=== PATIENT | male | born 1965 | race Caucasian/White ===

== ENCOUNTER 2017-03-18 18:27 | Inpatient (IN) | payer BC ==
--- NOTE | ~2017-03-18 | CO ---
Unit #: [id number] #: [id number] Patient: RODGER BUCHANAN [id number] [place] [address] [id number] I MR#: [id number] NAME: RODGER BUCHANAN ROOM: 81 Age: 51 Sex: M Admission Date: 03/18/2017 : 1965 Attending Physician: Ridge Arredondo M.D. Primary Care Physician: Primary Care Physician No Consultation Date: 03/19/2017 CONSULTATION REPORT SUBJECTIVE Rodger is a 51-year-old who complained of "severe" pain in his left side near his ribs sometime after admission. He tells me that he wrestled with a pit bull 10 days prior to admission. We have been asked to assess and give recommendations. OBJECTIVE GENERAL: Alert, well nourished, in no apparent distress. VITAL SIGNS: Blood pressure 130/70, heart rate 80, respirations 16, temperature 98.6. CHEST: Lungs clear. No evidence of bruising, swelling, or redness noted along the posterior, lateral, or anterior chest wall. ASSESSMENT Normal exam. PLAN Tylenol p.r.n. Dictated by... Caroline Cisneros PJodiA.-C. for Christa Up/frederic TD: 03/24/2017 23:09 JOB #: [id number] CONSULTATION REPORT Page 1 of 1 X Caroline Cisneros X CONSULTATION REPORT
--- NOTE | ~2017-03-18 | A ---
[facility] Nutrition Therapy DATE: 03/20/17 Patient: RADHA BUCHANAN Physician: ZBIGNIEW [facility] [address] [address] Room/[address]: [address], Zip: [place] [address] Admit Date: 03/18/17 Date of : [birth year] Height: 5 8 Weight: [phone] NUTRITIONAL ASSESSMENT: REASON: UNINTENTIONAL WEIGHT LOSS PATIENT ADMITTED FOR HEROIN DETOX PMH: DM2, HEP C, HLD Anthropometrics: HT: 5'8", WT: 160#, BMI: 24.3 Labs: 03/19/17: NA: 134, GLU: 334, ALB: 3.2 Meds: MVI, ZESTRIL, DESYREL, DETOX PROTOCOL Assessment: PATIENT IS A 51 Y/O MALE ADMITTED FOR HEROIN DETOX. PATIENT IS CURRENTLY EMPLOYED, LIVES WITH HIS PARENTS, SMOKES 1/2 PPD, HAS DAILY HEROIN AND ETOH USE, AND HAS A HX OF ILLICT SUBSTANCE ABUSE. PATIENT BROKE HIS JAW 3 MONTHS AGO AND STARTED USING HEROIN. HE STATED A GOOD APPETITE WITH NO RECENT WEIGHT CHANGES. NURSING REPORTS FAIR PO INTAKES. THERE ARE NO SKIN OR GI ISSUES NOTED ATT. CURRENT PSYCH MEDS MAY CAUSE APPETITE AND WEIGHT FLUCTUATIONS. PATIENT DOES NOT HAVE A HX OF INPATIENT OR OUTPATIENT TREATMENT. HIS BMI IS WITHIN A HEALTHY RANGE AND HE IS 104% OF HIS IBW. PATIENT IS ON A CC DIET. Dx: ALTERED NUTRIENT NEED R/T DM, CURRENT CONDITION AEB NEED FOR A THERAPEUTIC DIET Intervention: CC DIET, MEDS PER MD, DETOX, PSYCH Monitoring, Evaluation and Goals: 1. ADEQUATE PO INTAKES >50% OF MEALS 2. PREVENT, CORRECT MICRO/MACRO NUTRIENT DEFICIENCIES MONITOR: WEIGHTS, LABS, PO/FLUID INTAKES Recommendations: 1. CONTINUE CC DIET TOLERATED. OFFER SNACKS THROUGHOUT THE DAY 2. ENCOURAGE ADEQUATE PO AND FLUID INTAKES 3. IF PO INTAKES FALL BELOW 50% OF MEALS PLEASE ORDER GLUCERNA BID TO PROMOTE ADEQUATE KCAL AND PROTEIN INTAKES RD TO F/U PER PROTOCOL AND PRN R/T PATIENT MILDLY COMPROMISED [facility] Nutrition Therapy DATE: 03/20/17 Patient: RADHA BUCHANAN Physician: ZBIGNIEW Address: [address] Room/Bed: [address], Zip: [place] [address] Admit Date: 03/18/17 Date of : [birth year] Height: 5 8 Weight: [phone] Respectfully, DOMINIC VZÁQUEZ RD, LD [facility] cc: client file
--- NOTE | ~2017-03-18 | PA ---
Unit #: [id number] #: [id number] Patient: RADHA BUCHANAN [id number] [place] [address] [id number] I MR#: [id number] NAME: RADHA BUCHANAN ROOM: P181 Age: 51 Sex: M Admission Date: 03/18/2017 : 1965 Date of Assessment: 03/19/2017 Attending Physician: Ridge Arredondo M.D. Admitting Physician: Ridge Arredondo M.D. Primary Care Physician: Primary Care Physician No PSYCHIATRIC ASSESSMENT LOCATION [facility], room #181, bed #2. INFORMANT The patient's chart seems reliable. CHIEF COMPLAINT I have been drinking and using heroin. HISTORY OF PRESENT ILLNESS This is a 51-year-old white male with a history of unclear IV heroin and alcohol use. The patient was fairly somnolent and limited in his cooperation during interview process, but he did admit to using alcohol and heroin daily. Most information had to be obtained from chart in terms of details. He did deny any SI or HI, but overall was a poor historian today. The patient apparently per the chart has been using heroin for the last several months, following being given pain pills by his dentist, apparently they more effective so he went immediately to heroin use. It is unclear 0.5 g to 1 g a day as well as 15 or so shots of whiskey a day everyday. It is unclear how long he has been drinking that heavily. The patient apparently has had a subjective history of withdrawal symptoms, but he denied any issues with seizures with me. He denied any acute mood issues, but does report he wants to get "clean." Beyond that, rest of the information will be obtained from the chart. PAST PSYCHIATRIC HISTORY No known issues reported or elicited. No history of inpatient or outpatient care. No history of medications. No history of SI, HI, or any psychosis. FAMILY HISTORY Noncontributory. SOCIAL HISTORY The patient apparently has some college education and is currently living with his parents and is working on a degree for certified [employer]. Conflict issues with his sister who lives there as well. The patient has a history of incarceration. MEDICAL HISTORY Significant for hepatitis C and diabetes. MEDICATION HISTORY Unit #: [id number] #: [id number] Patient: RADHA BUCHANAN Includes Zestril 40 mg daily, Levemir 40 units b.i.d. subcu, Glucophage XR 1000 mg b.i.d. with meals, trazodone 200 mg at bedtime, NovoLog as needed sliding scale. No other medications. ALLERGIES Include codeine and atorvastatin. SUBSTANCE ABUSE HISTORY As noted above, unclear about previous treatments or significant withdrawal symptoms in the past. MENTAL STATUS EXAMINATION General appearance; this is a limitedly groomed white male, appears older than stated age, limited cooperation and response during the interview process. Speech was brief, limited articulation. Mood was somnolent with a blunted affect. Thought process and content were limited in organizational evaluation. No active evidence of SI or HI. Denied psychosis. The patient's memory was limited in its evaluation. He is alert and oriented to time, self, and place, and date, and situation. Cognitive function seems to be stable. Associations are normal. Insight and judgment are poor. ASSETS AND LIABILITIES Assets include support through family, some education. Liabilities include unemployment, history of legal incarceration, ongoing substance abuse. DIAGNOSES 1. Opioid dependency with withdrawal. 2. Alcohol dependency with withdrawal. 3. Diabetes. 4. Hepatitis C. PSYCHIATRIC PLAN Continue the patient's admission for safety and stabilization for ongoing issues of detox from both opioids and alcoholism, and will be placed on appropriate protocols and monitor accordingly. The patient also be maintained on his home medications as noted above as well as be seen by a nurse practitioner for medical evaluation needs. Treatment goal will be resolution of symptoms in a safe controlled environment with discharge planning most likely to be community resources and/or residential treatment if applicable. ESTIMATED LENGTH OF STAY Approximately 5 days. Dictated by... Ridge Arredondo M.D. EZE/frederic TD: 03/19/2017 18:17 JOB #: [id number] Unit #: [id number] #: [id number] Patient: RADHA BUCHANAN PSYCHIATRIC ASSESSMENT Page 1 of 1 X Ridge Arredondo MD X PSYCHIATRIC ASSESSMENT
--- NOTE | ~2017-03-18 | PN ---
Unit #: [id number] #: [id number] Patient: RADHA BUCHANAN [id number] [facility] [address] [place] [address] [id number] I MR#: [id number] NAME: RADHA BUCHANAN ROOM: P181 Age: 51 Sex: M Admission Date: 03/18/2017 : 1965 Attending Physician: Ridge Arredondo M.D. Admitting Physician: Ridge Arredondo M.D. Primary Care Physician: Primary Care Physician Alpa PINON PROGRESS NOTES DATE 03/20/2017 SUBJECTIVE UPDATE This is a 51-year-old male with ongoing issues of alcohol, opiate dependency with related withdrawal. Patient more active and alert today. Reports feeling somewhat better, at least he has got more energy. He is more alert, still notably diaphoretic, tremors in both hands, having some sleep disturbance, some anxiety, aches and pains, upset stomach, headache but patient seems overall is making improvement. Patient asked about the possibility of naltrexone since he wishes to start a Vivitrol trial on outpatient basis. Staff report patient compliant with medications but for now isolative to self. MENTAL STATUS EXAMINATION General appearance is a poorly groomed white male, disheveled, appears older than stated age, improved cooperation though and responsiveness. Speech was clear and coherent. Mood was somewhat anxious with a constricted affect. Thought process and content are grossly organized and linear. No overt evidence of psychosis. No SI, no HI reported or elicited. Patient's memory was grossly intact. Associations were normal. Cognitive functioning was at baseline. Alert and oriented times four. Insight and judgement is improving. RECOMMENDATIONS Will continue patient's admission for ongoing detox issues, symptoms as noted above. Patient is showing good progress and should be able to be dispositioned soon with the addition of naltrexone being started today at 50 mg for substance prophylaxis treatment. Patient informed about this and is in agreement. Will continue to monitor and make disposition plans as symptoms resolve. Dictated by... Ridge Arredondo M.D. EZE/hussain TD: 03/20/2017 20:26 JOB #: [id number] Unit #: [id number] #: [id number] Patient: RADHA BUCHANAN PROGRESS NOTES Page 1 of 1 X Ridge Arredondo MD PROGRESS NOTE
--- NOTE | ~2017-03-18 | HP ---
Unit #: [id number] #: [id number] Patient: RODGER BUCHANAN [id number] [place] [address] [id number] I MR#: [id number] NAME: RODGER BUCHANAN ROOM: P181 Age: 51 Sex: M Admission Date: 03/18/2017 : 1965 Attending Physician: Ridge Arredondo M.D. Admitting Physician: Ridge Arredondo M.D. Primary Care Physician: Primary Care Physician No HISTORY AND PHYSICAL HISTORY OF PRESENT ILLNESS Rodger is a 51 year old admitted to [facility] because of his drug use. He shoots heroin. PAST MEDICAL HISTORY 1. Long history of opioid abuse to include IV heroin. 2. Hepatitis C. 3. Diabetes mellitus. 4. Hyperlipidemia. PAST SURGICAL HISTORY Nothing reported. ALLERGIES Codeine, Lipitor. SOCIAL HISTORY Smokes 1/2 pack per day. Drinks at least a pint of liquor on a daily basis. Has a history of IV drug use and continues to shoot heroin. FAMILY HISTORY Medically noncontributory. REVIEW OF SYSTEMS CONSTITUTIONAL: No fever or chills. HEENT: Denies any sore throat, ear pain or runny nose. CARDIOVASCULAR: Denies chest pain, irregular heart rhythm or palpitations. CHEST: Denies shortness of breath or cough. No hemoptysis. GASTROINTESTINAL: Denies nausea, vomiting, diarrhea or chronic constipation. ENDOCRINE: Denies history of increased thirst or urination. No recent significant weight loss or gain. GENITOURINARY: Denies dysuria, frequency, or hematuria. SKIN: Denies any rashes. HEMATOLOGIC: Denies history of increased bleeding or bruising. MUSCULOSKELETAL: Denies any hot, swollen joints. No generalized muscle pain. NEUROLOGIC: Denies problems with vision or speech. No frequent, severe headaches. No numbness, tingling or weakness in any extremities. Denies loss of bladder or bowel control. CURRENT MEDICATIONS 1. Detox protocol. Unit #: [id number] #: [id number] Patient: RODGER BUCHANAN 2. Actos 15 mg daily. 3. Protonix 40 mg daily. 4. Zestril 40 mg daily. 5. Levemir 45 units b.i.d. 6. Glucophage XR 1000 mg b.i.d. 7. NovoLog per sliding scale. PHYSICAL EXAMINATION GENERAL: Alert, appearing much older than his stated age of 51, in no apparent distress. VITAL SIGNS: Blood pressure 136/88, heart rate 74, respirations 16, temperature 98.6. WEIGHT: 160. HEIGHT: 5 feet 8 inches. SKIN: Warm and dry without rash or lesion. HEENT: Normocephalic. TMs not viewed. Oral and nasal passages clear. Conjunctivae clear. PERRLA. EOMs intact. NECK: Supple without lymphadenopathy or thyromegaly. HEART: Regular rate and rhythm without murmur. LUNGS: Clear. ABDOMEN: Soft, nontender. : Not done. EXTREMITIES: No evidence of cyanosis, clubbing or edema. Moves all without focal deficit. NEUROLOGICAL: Grossly within normal limits. Cranial Nerves: II: Visual cat are intact. III, IV AND : Extraocular movements are intact. Pupils are equal, round and reactive to light. V: Facial sensation is grossly normal. VII: Facial movements and expression are normal. VIII: Auditory acuity grossly intact. IX, X: Uvula is midline. Phonation is normal. XI: Patient shrugs shoulders and turns head normally. XII: Tongue protrudes in the midline. Sensory and Motor Function: Sensory and motor sensation is grossly normal. Motor: moves all extremities well. Coordination: Gait is normal. Deep Tendon Reflexes: Intact. IMPRESSION Psychiatric admission. RECOMMENDATIONS PSYCHIATRIC: Per psychiatrist. MEDICAL: See no contraindications to participate in facility's activities. MEDICAL PROGNOSIS Good. MEDICAL CONDITION Stable. Dictated by... Caroline Cisneros P.A.-C. for Christa Up/hussain Unit #: [id number] #: [id number] Patient: RODGER BUCHANAN TD: 03/19/2017 16:52 JOB #: [id number] HISTORY AND PHYSICAL Page 1 of 1 X Caroline Cisneros HISTORY AND PHYSICAL
--- NOTE | ~2017-03-18 | DS ---
Unit #: [id number] #: [id number] Patient: RADHA BUCHANAN [id number] [place] [address] [id number] I MR#: [id number] NAME: RADHA BUCHANAN ROOM: [facility] Age: 51 Sex: M Admission Date: 03/18/2017 : 1965 Discharge Date: 03/21/2017 Attending Physician: Ridge Arredondo M.D. Primary Care Physician: Primary Care Physician No DISCHARGE SUMMARY REASON FOR ADMISSION Alcohol and opiate dependency with detox from both. DIAGNOSTIC STUDIES LABORATORY DATA: Routine blood work that showed an elevated glucose of 334, CMP that was within parameters with the exception of sodium of 134, albumin of 3.2, AST of 55, ALT of 66, and fluctuating overall blood glucose checks. CBC was normal with the exception of (1) __ hemoglobin of 12.7 and hematocrit of 37.5, but otherwise normal. RPR was nonreactive. Drug screen was positive for opiates. Urinalysis showed a 100 glucose with 0.3, urobilinogen present. This is all notable given the patient's history of diabetes as well that was uncontrolled. HOSPITAL COURSE The patient was admitted for safety and stabilization for issues with long-term heroin dependency and alcohol dependency with need for detox from both. The patient also is paranoid, but compliant with his general medical meds. Those are restarted from his most recent outpatient regimen pharmaceutical list for his diabetes, hypertension, GERD, and testosterone. Over the course of hospitalization, the patient showed a rapid improvement. He initially reported issues with aches and pains, tremors, upset stomach, anxiety, headaches, restlessness, diaphoresis, poor energy, poor sleep, and poor appetite. The patient showed rapid improvement in all these factors as well as in his general medical condition. At the time of discharge, the patient was denying any overt symptoms. He was reporting feeling better. The patient had enquired about getting on naltrexone with the idea that he would possibly be able to start Vivitrol injections on an outpatient basis. I will start it at 50 mg daily by mouth which he tolerated well with the idea that he would follow up with an outpatient program and transition over to the Vivitrol injection. There were no issues with side effects or adverse reactions. The patient was in good shape at the time of discharge in terms of his mood and overall presentation. He was energetic, up and about, eating well, went to the bathroom well. Not having any new complaints. It was overall felt the patient had reached maximum benefit from his admission and was appropriate for discharge home. DISCHARGE DIAGNOSES 1. Opiate dependency with withdrawal. 2. Alcohol dependency with withdrawal. 3. Diabetes. 4. Hypertension. 5. Testosterone deficiency. 6. Gastroesophageal reflux disease. Unit #: [id number] #: [id number] Patient: RADHA BUCHANAN DISCHARGE INSTRUCTIONS Follow[facility] at [facility] at the patient's request. DISCHARGE MEDICATIONS 1. Lantus 45 units subcu twice a day for diabetes. 2. Humalog sliding scale with meals subcu for diabetes. 3. Lisinopril 40 mg daily for hypertension. 4. Metformin XR 750 mg twice a day for diabetes. 5. Pantoprazole 40 mg twice a day for GERD. 6. Actos 50 mg daily by mouth for diabetes. 7. Testosterone 50 mg/5 grams (2) __ daily as an ointment for testosterone deficiency. 8. Trazodone 200 mg at bedtime for sleep. 9. Naltrexone 50 mg daily for opiate prophylaxis treatment. CONDITION AT DISCHARGE Improving. PROGNOSIS Guarded given the patient's history of poor compliance. DISCHARGE DIET No concentrates sweets and heart healthy. DISCHARGE ACTIVITY As tolerated with sobriety. Compliance encouraged. Dictated by... Ridge Arredondo M.D. EZE/markus TD: 03/21/2017 11:21 JOB #: [id number] DISCHARGE SUMMARY Page 1 of 1 X Ridge Arredondo MD X DISCHARGE SUMMARY
[2017-03-19 10:18] LABS: BASOPHIL% 0.7 % (0-2.5); EOSINOPHIL# 0.1 X10e3 (0-0.7); EOSINOPHIL% 2.5 % (0.0-7.0); HEMATOCRIT 37.5 % (38.0-50.0); HEMOGLOBIN 12.7 gm/dL (13.0-16.0); LYMPHOCYTE# 1.3 X10e3 (1.0-3.5); LYMPHOCYTE% 30.5 % (17.0-45.0); MEAN CELL VOLUME 88.8 FL (83-96); MEAN CORPUSCULAR HEMOGLOBIN 30.1 PG (28-34); MEAN CORPUSCULAR HGB CONC 33.9 g/dL (30-36); MEAN PLATELET VOLUME 9.1 FL (6.5-11.5); MONOCYTE# 0.4 X10e3 (0-1.0); MONOCYTE% 10.7 % (3.0-12.0); NEUTROPHIL# 2.3 X10e3 (1.5-7.1); NEUTROPHIL% 55.6 % (40-75); PLATELET COUNT 149 X10e3 (140-420); RED BLOOD COUNT 4.23 X10e (3.90-5.60); WHITE BLOOD COUNT 4.1 X10e3 (4.0-10.5)
[2017-03-19 10:22] LABS: DIFF IND NO
[2017-03-19 10:25] LABS: ALBUMIN SERUM 3.2 g/dL (3.5-5.0); BILIRUBIN,TOTAL 0.9 mg/dL (0.2-2.0); BUN/CREATININE RATIO 14.28; CREATININE SERUM 0.7 mg/dL (0.6-1.4); GLOM FILT RATE Estimated 108.5 mL/min (>60); POTASSIUM 4.2 mmol/L (3.5-5.1)
[2017-03-20 09:49] LABS: URINE APPEARANCE CLEAR; URINE BILIRUBIN NEG (NEG); URINE BLOOD NEG (NEG); URINE COLOR DK YELLOW; URINE GLUCOSE 100 MG/DL (NEG); URINE KETONE NEG (NEG); URINE LEUKOCYTE ESTERASE NEG (NEG); URINE NITRATE NEG (NEG); URINE PH 5.5 (5-8); URINE PROTEIN NEG (NEG); URINE SPECIFIC GRAVITY 1.008 (1.003-1.035); URINE UROBILINOGEN 0.2 MG/DL (NEG)
[2017-03-20 10:38] LABS: AMPHETAMINE NEG (NEG); BARBITURATES NEG (NEG); BENZODIAZEPINES NEG (NEG); COCAINE NEG (NEG); MARIJUANA NEG (NEG); OPIATES POS (NEG); TRICYCLIC ANTIDEPRESSANTS NEG (NEG); U METHADONE NEG (NEG)
== END 2017-03-21 11:55 | disposition home or self-care (01) | DRG 897 ==
LOC: P1E 21:18
PROVIDERS: Psychiatry & Neurology Psychiatry
PROC: HZ2ZZZZ Detoxification Services for Substance Abuse Treatment (ICD-10-PCS; principal; 2017-03-18)
DX: F11.23 Opioid dependence with withdrawal (principal); F10.230 Alcohol dependence with withdrawal, uncomplicated; I10 Essential (primary) hypertension; E11.9 Type 2 diabetes mellitus without complications; Z79.4 Long term (current) use of insulin; B19.20 Unspecified viral hepatitis C without hepatic coma; E78.5 Hyperlipidemia, unspecified; F17.210 Nicotine dependence, cigarettes, uncomplicated; K21.9 Gastro-esophageal reflux disease without esophagitis
CPT/HCPCS: 80053; 80307; 81003; 82947; 85025; 86592